=== PATIENT | male | born 1970 | race Caucasian/White ===

== ENCOUNTER 2020-11-02 10:38 | Emergency (ER) | payer BC ==
[2020-11-02] MEDS ORDERED: ONDANSETRON 4 MG/2 ML VIAL ONE (10:50)
[2020-11-02] MEDS ORDERED: DIAZEPAM 10 MG/2 ML INJ SYRINGE ONE ×2 (10:50→11:11)
[2020-11-02] MEDS ORDERED: NA CHLORIDE 0.9% 1,000 ML ONE ×2 (10:50→12:00)
[2020-11-02] MEDS ORDERED: FOLIC ACID 1 MG, THIAMINE HCL 100 MG, MULTIVITAMINS INJ 10 ML in NA CHLORIDE 0.9% 1,000 ML IV ONE (11:15)
[2020-11-02 11:16] LABS: Absolute Lymphocytes (CBC) 0.4 K/uL (0.7-4.9); Basophils % 0.3 % (0-1.3); Hematocrit 33.6 % (39.6-49.0); Lymphocytes % 8.2 % (15.3-44.8); MPV 7.9 fL (7.6-11.3); RBC Red Blood Cell Count 3.99 M/uL (4.33-5.43)
--- NOTE | 2020-11-02 11:20 | RAD REPORT ---
EXAM DESCRIPTION: CT - Head Brain Wo Cont - 11/02/2020 10:58 am CLINICAL HISTORY: SEIZURE, dizziness COMPARISON: No comparisons TECHNIQUE: Axial 5 mm thick images of the head were obtained without IV contrast. All CT scans are performed using dose optimization technique as appropriate and may include automated exposure control or mA/KV adjustment according to patient size. FINDINGS: No intracranial hemorrhage, mass, edema or shift of mid-line structures. No acute infarcti on changes seen. No abnormal extra-axial fluid collections. Ventricles are normal. Mastoid air cells and visualized portions of the paranasal sinuses are clear. No acute bony findings. IMPRESSION: Negative non-contrast CT head examination for acute finding. Continued, unexplained symptoms can be further addressed with MR imaging.
[2020-11-02 11:38] LABS: Albumin 3.5 g/dL (3.4-5.0); Bilirubin Direct 0.2 mg/dL (0-0.2); Bilirubin Total 0.7 mg/dL (0.2-1.0); Protein, Total 6.7 g/dL (6.4-8.2)
[2020-11-02 12:01] LABS: Blood Morphology Comment NOT SEEN (NOT SEEN); Platelet Estimate ADEQ; White Blood Cell Scan OK (OK)
--- NOTE | 2020-11-02 12:30 | RAD REPORT ---
EXAM DESCRIPTION: RAD - Chest Single View - 11/02/2020 12:05 pm CLINICAL HISTORY: CONGESTION COMPARISON: No comparisons FINDINGS: Ill-defined consolidative left lower lobe airspace disease. The heart size is within thierry l limits.No acute osseous abnormality. No significant pleural effusions or pneumothorax. IMPRESSION: Consolidative airspace disease in left lower lobe concerning for pneumonia. Recommend 6 week radiographic follow-up to ensure resolution.
--- NOTE | 2020-11-02 13:07 | ER ---
Nurse's Notes [facility] Name: Ford Ling Age: 50 yrs Sex: Male : 1970 Arrival Date: 11/02/2020 Time: 10:42 Bed 4 Private MD: Diagnosis: Other seizures Presentation: 11/02 10:43 Chief complaint: EMS states: pt had witnessed seizure at home, one en route to ER, had iw a seizure a month ago while golfing but never followed up. pt now A\T\OX3, drinks daily, has been drinking heavily over past 8 days, last drink was last night. EMs reports initial BP was 75/44 , IV fluids started. Coronavirus screen: At this time, the client does not indicate any symptoms associated with coronavirus-19. Ebola Screen: Patient negative for fever greater than or equal to 101.5 degrees Fahrenheit, and additional compatible Ebola Virus Disease symptoms Patient denies exposure to infectious person. Patient denies travel to an Ebola-affected area in the 21 days before illness onset. No symptoms or risks identified at this time. Initial Sepsis Screen: Does the patient meet any 2 criteria? No. Patient's initial sepsis screen is negative. Does the patient have a suspected source of infection? No. Patient's initial sepsis screen is negative. Risk Assessment: Do you want to hurt yourself or someone else? Patient reports no desire to harm self or others. 10:43 Method Of Arrival: EMS: [facility] iw 10:43 Care prior to arrival: Medication(s) given: Normal saline infusion, 500 mL, IV iw initiated. 20 GA, in the right hand, Glucose check: 119. 10:45 Onset of symptoms was November 02, 2020. iw 10:45 Acuity: VLADISLAV 2 iw Triage Assessment: 10:46 General: Appears in no apparent distress. comfortable, well groomed, well developed, sv Behavior is cooperative, appropriate for age. Pain: Denies pain. Neuro: Level of Consciousness is awake, alert, obeys commands, Oriented to person, place, time, situation, Moves all extremities. Full function Gait is steady, Speech is normal. Neuro: Seizure activity reported prior to arrival. Respiratory: Airway is patent Respiratory effort is even, unlabored, Respiratory pattern is regular, symmetrical. Derm: Skin is pink, warm \T\ dry. Historical: - Allergies: 10:46 Latex, Natural Rubber; iw - Home Meds: 10:46 citalopram 20 mg tab 1 tab once daily [Active]; valsartan-hydrochlorothiazide 160-12.5 iw mg oral tab 1 tab once daily [Active]; ProAir HFA 90 mcg/actuation inhalation HFAA 1 puff every 4-6 hours [Active]; Breo Ellipta 100-25 mcg/dose inhalation dsdv 1 puff once daily [Active]; primidone 50 mg Oral tab [Active]; omeprazole 20 mg Oral cpDR 1 cap once daily [Active]; fluticasone propionate inhalation [Active]; Azithromycin Oral [Active]; prednisone 20 mg Oral tab [Active]; - PMHx: 10:46 Asthma; GERD; Hypertensive disorder; tremors; iw - PSHx: 10:51 None; iw - Immunization history:: Client reports receiving the 1st dose of the Covid vaccine. - Social history:: Smoking status: Patient denies any tobacco usage or history of. Patient uses alcohol, on a daily basis. - Family history:: not pertinent. Screenin:45 Abuse screen: Denies threats or abuse. Denies injuries from another. Nutritional sv screening: No deficits noted. Tuberculosis screening: No symptoms or risk factors identified. Fall Risk None identified. Assessment: 11:28 Reassessment: Patient appears in no apparent distress at this time. No changes from sv previously documented assessment. Patient and/or family updated on plan of care and expected duration. Pain level reassessed. Patient is alert, oriented x 3, equal unlabored respirations, skin warm/dry/pink. 12:46 Reassessment: Patient appears in no apparent distress at this time. No changes from sv previously documented assessment. Vital Signs: 10:43 BP 105 / 58; Pulse 106; Resp 16 S; Weight 88.45 kg; Height 5 ft. 9 in. (175.26 cm); iw 10:50 Temp 98.9(TE); Pulse Ox 92% on R/A; sv 11:16 BP 109 / 92; Pulse 103; Resp 25; Pulse Ox 97% on 3 lpm NC; sv 11:32 BP 81 / 38; Pulse 104; Resp 16; Pulse Ox 98% ; sv 12:00 BP 119 / 69; Pulse 105; Resp 21; Pulse Ox 100% on 3 lpm NC; sv 13:00 BP 107 / 67; Pulse 106; Resp 19; Pulse Ox 98% ; sv 10:43 Body Mass Index 28.80 (88.45 kg, 175.26 cm) iw 10:50 Pt placed on O2 \T\ 3L per NC. sv [place] Coma Score: 10:46 Eye Response: spontaneous(4). Verbal Response: oriented(5). Motor Response: obeys sv commands(6). Total: 15. ED Course: 10:42 Patient arrived in ED. iw 10:42 Javon Young MD is Attending Physician. ma2 10:46 Triage completed. iw 10:46 Placed in gown. Bed in low position. Call light in reach. Side rails up X2. Seizure sv precautions initiated. bed teacher on. Pulse ox on. NIBP on. 10:46 Maintain EMS IV. Dressing intact. Good blood return noted. Site clean \T\ dry. Gauge \T\ sv site: 20G R hand. 10:47 Alis Coleman RN is Primary Nurse. sv 10:49 Arm band placed on. iw 10:52 EKG done, by ED staff, reviewed by Javon Young MD. dh3 10:56 Basic Metabolic Panel Sent. sv 10:58 CT Head Brain wo Cont In Process Unspecified. EDMS 12:06 Chest Single View XRAY In Process Unspecified. EDMS 13:06 Chicho Durham MD is Referral Physician. ma2 13:33 No provider procedures requiring assistance completed. IV discontinued, intact, ap3 bleeding controlled, No redness/swelling at site. Pressure dressing applied. Administered Medications: 10:50 Drug: Valium (diazepam) 10 mg Route: IVP; Site: right hand; sv 11:28 Follow up: Response: No adverse reaction sv 13:34 Follow up: Response: No adverse reaction ap3 11:28 Drug: Banana Bag - (NS 0.9% 1000 ml, foLIC Acid 1 mg, Thiamine 100 mg, Multivitamin 1 sv amp) Route: IV; Rate: calculated rate; Site: right hand; 13:34 Follow up: IV Status: Completed infusion; IV Intake: 1000ml ap3 Intake: 13:34 IV: 1000ml; Total: 1000ml. ap3 Outcome: 13:07 Discharge ordered by . ma2 13:33 Discharge instructions given to patient, family, Instructed on discharge instructions, ap3 follow up and referral plans. Demonstrated understanding of instructions, follow-up care. 13:33 Discharged to home ambulatory, with significant other. ap3 13:33 Condition: good 13:35 Patient left the ED. ap3 Signatures: Dispatcher [employer] Alis Stover RN RN Cori Lopez RN RN Taylor Rebollar [facility] Javon Young MD MD ma2 Bibi Romo RN RN ap3 Corrections: (The following items were deleted from the chart) 10:46 10:43 Chief complaint: EMS states: pt had witnessed seizure at home, one en route to ER, had a seizure a month ago while golfing but never followed up. pt now A\T\OX3, drinks daily, has been drinking heavily over past 8 days, last drink was last night iw 10:46 10:43 BP 105 / 58; Pulse 106bpm; Resp 16bpm; Spontaneous; iw iw
--- NOTE | 2020-11-02 13:07 | EDPHYS ---
Physician Documentation [facility] Name: Ford Ling Age: 50 yrs Sex: Male : 1970 Arrival Date: 11/02/2020 Time: 10:42 Bed 4 Private MD: ED Physician Javon Young HPI: 11/02 12:27 This 50 yrs old Male presents to ER via EMS with complaints of Seizure. ma2 12:27 The patient presents after having a single isolated seizure. Character of seizure(s): ma2 Motor activity: generalized. Seizure onset: just prior to arrival. Seizure Hx: the patient has no previous seizure history. Associated injury: The patient did not suffer any apparent associated injury. The patient has experienced a previous episode. Patient states that he has been heavily drinking alcohol, he is here with 2 episodes of seizure, generalized tonic-clonic, no postictal and he is back to normal, he has no symptom at this time, he has had this before 6 months ago in the same setting of abruptly cutting down alcohol.. Historical: - Allergies: 10:46 Latex, Natural Rubber; iw - Home Meds: 10:46 citalopram 20 mg tab 1 tab once daily [Active]; valsartan-hydrochlorothiazide 160-12.5 iw mg oral tab 1 tab once daily [Active]; ProAir HFA 90 mcg/actuation inhalation HFAA 1 puff every 4-6 hours [Active]; Breo Ellipta 100-25 mcg/dose inhalation dsdv 1 puff once daily [Active]; primidone 50 mg Oral tab [Active]; omeprazole 20 mg Oral cpDR 1 cap once daily [Active]; fluticasone propionate inhalation [Active]; Azithromycin Oral [Active]; prednisone 20 mg Oral tab [Active]; - PMHx: 10:46 Asthma; GERD; Hypertensive disorder; tremors; iw - PSHx: 10:51 None; iw - Immunization history:: Client reports receiving the 1st dose of the Covid vaccine. - Social history:: Smoking status: Patient denies any tobacco usage or history of. Patient uses alcohol, on a daily basis. - Family history:: not pertinent. ROS: 12:27 Constitutional: Negative for fever, chills, and weight loss. ma2 12:27 All other systems are negative. Exam: 12:27 Constitutional: This is a well developed, well nourished patient who is awake, alert, ma2 and in no acute distress. Head/Face: Normocephalic, atraumatic. Eyes: Pupils equal round and reactive to light, extra-ocular motions intact. Lids and lashes normal. Conjunctiva and sclera are non-icteric and not injected. Cornea within normal limits. Periorbital areas with no swelling, redness, or edema. ENT: Nares patent. No nasal discharge, no septal abnormalities noted. Tympanic membranes are normal and external auditory canals are clear. Oropharynx with no redness, swelling, or masses, exudates, or evidence of obstruction, uvula midline. Mucous membranes moist. Neck: Trachea midline, no thyromegaly or masses palpated, and no cervical lymphadenopathy. Supple, full range of motion without nuchal rigidity, or vertebral point tenderness. No Meningismus. Chest/axilla: Normal chest wall appearance and motion. Nontender with no deformity. No lesions are appreciated. Cardiovascular: Regular rate and rhythm with a normal S1 and S2. No gallops, murmurs, or rubs. Normal PMI, no JVD. No pulse deficits. Respiratory: Lungs have equal breath sounds bilaterally, clear to auscultation and percussion. No rales, rhonchi or wheezes noted. No increased work of breathing, no retractions or nasal flaring. Abdomen/GI: Soft, non-tender, with normal bowel sounds. No distension or tympany. No guarding or rebound. No evidence of tenderness throughout. Back: No spinal tenderness. No costovertebral tenderness. Full range of motion. Skin: Warm, dry with normal turgor. Normal color with no rashes, no lesions, and no evidence of cellulitis. MS/ Extremity: Pulses equal, no cyanosis. Neurovascular intact. Full, normal range of motion. Neuro: Awake and alert, GCS 15, oriented to person, place, time, and situation. Cranial nerves II-XII grossly intact. Motor strength 5/5 in all extremities. Sensory grossly intact. Cerebellar exam normal. Normal gait. Vital Signs: 10:43 BP 105 / 58; Pulse 106; Resp 16 S; Weight 88.45 kg; Height 5 ft. 9 in. (175.26 cm); iw 10:50 Temp 98.9(TE); Pulse Ox 92% on R/A; sv 11:16 BP 109 / 92; Pulse 103; Resp 25; Pulse Ox 97% on 3 lpm NC; sv 11:32 BP 81 / 38; Pulse 104; Resp 16; Pulse Ox 98% ; sv 12:00 BP 119 / 69; Pulse 105; Resp 21; Pulse Ox 100% on 3 lpm NC; sv 13:00 BP 107 / 67; Pulse 106; Resp 19; Pulse Ox 98% ; sv 10:43 Body Mass Index 28.80 (88.45 kg, 175.26 cm) iw 10:50 Pt placed on O2 \T\ 3L per NC. sv [place] Coma Score: 10:46 Eye Response: spontaneous(4). Verbal Response: oriented(5). Motor Response: obeys sv commands(6). Total: 15. MDM: 10:[address] [facility] 12:27 Differential diagnosis: drug overdose, seizure, Alcohol withdrawal. Data reviewed: [facility] vital signs, nurses notes. Counseling: I had a detailed discussion with the patient and/or guardian regarding: the historical points, exam findings, and any diagnostic results supporting the discharge/admit diagnosis, the presence of at least one elevated blood pressure reading (>120/80) during this emergency department visit, the need for outpatient follow up. Response to treatment: the patient's symptoms have markedly improved after treatment, He will follow up with a neurologist tomorrow,. 13:06 Counseling: I had a detailed discussion with the patient and/or guardian regarding: co2 Patient is known to have right lower lobe pneumonia, for few days he is on azithromycin that he started yesterday.. 11/02 10:44 Order name: Basic Metabolic Panel [facility] 11/02 10:44 Order name: CBC with Diff; Complete Time: 12:09 [facility] 11/02 10:44 Order name: Hepatic Function; Complete Time: 11:44 [facility] 11/02 10:44 Order name: Lipase; Complete Time: 11:44 [facility] 11/02 10:44 Order name: Basic Metabolic Panel; Complete Time: 11:44 EDMS 11/02 10:54 Order name: Alcohol Level; Complete Time: 13:04 [facility] 11/02 10:44 Order name: EKG - Nurse/Tech; Complete Time: 10:53 [facility] 11/02 10:44 Order name: IV Saline Lock; Complete Time: 10:47 ma2 11/02 10:44 Order name: Labs collected and sent; Complete Time: 10:47 ma2 11/02 10:44 Order name: CT Head Brain wo Cont; Complete Time: 11:44 ma2 11/02 11:23 Order name: CBC Smear Scan; Complete Time: 12:09 EDNM 11/02 11:45 Order name: Chest Single View XRAY; Complete Time: 13:04 ma2 Administered Medications: 10:50 Drug: Valium (diazepam) 10 mg Route: IVP; Site: right hand; sv 11:28 Follow up: Response: No adverse reaction sv 13:34 Follow up: Response: No adverse reaction ap3 11:28 Drug: Banana Bag - (NS 0.9% 1000 ml, foLIC Acid 1 mg, Thiamine 100 mg, Multivitamin 1 sv amp) Route: IV; Rate: calculated rate; Site: right hand; 13:34 Follow up: IV Status: Completed infusion; IV Intake: 1000ml ap3 Disposition Summary: 11/02/20 13:07 Discharge Ordered Location: Home ma2 Condition: Stable ma2 Diagnosis - Other seizures ma2 Followup: ma2 - With: Chicho Durham MD - When: Tomorrow - Reason: Continuance of care Discharge Instructions: - Discharge Summary Sheet ma2 - Seizure, Adult ma2 Forms: - Medication Reconciliation Form ma2 - Thank You Letter ma2 - Antibiotic Education ma2 - Prescription Opioid Use ma2 Signatures: Dispatcher [employer] Alis Stover RN RN sv Williams, Irene, RN RN iw Alzahri, Mohammad, MD MD co2 Bibi Romo RN ap3
[2020-11-02 13:42] VITALS: TEMP 98.9
[2020-11-02 13:50] VITALS: BP 107/67; O2SAT 98
--- NOTE | 2020-11-06 12:43 | EKG ---
Test Date: 2020-11-02 Test Time: 10:50:25 Child Support Investigator: BRAD MEASUREMENT RESULTS: Intervals: Rate: 103 CA: 166 QRSD: 82 QT: 334 QTc: 437 [place]: P: 74 CA: 166 QRS: 72 T: 71 INTERPRETIVE STATEMENTS: Sinus tachycardia Otherwise normal ECG No previous ECG available for comparison Electronically Signed On 11-06-20 12:38:02 CDT by Perez Beasley
== END 2020-11-02 13:35 | disposition home or self-care (01) ==
LOC: ER 10:38
DX: G40.89 Other seizures (principal); I10 Essential (primary) hypertension; Z91.040 Latex allergy status; Z91.048 Other nonmedicinal substance allergy status
CPT/HCPCS: 96365; 85025; 80048; 36415; 80320; 80076; 83690; 70450; 71045; 96375; 99284; 96366; J3411; J3360 ×2; J7030 ×3; J2405; 93005